=== PATIENT | female | born 1975 | race American Indian/Alaskan Native ===

== ENCOUNTER 2017-12-25 09:34 | Emergency (ER) | payer SELFPAY ==
[2017-12-25] MEDS ORDERED: REGLAN IV ONE (11:19)
[2017-12-25] MEDS ORDERED: BENADRYL IV ONE (11:20)
[2017-12-25] MEDS ORDERED: TYLENOL PO ONE (11:20)
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
[2017-12-25 12:21] VITALS: BP 113/73
== END 2017-12-25 12:27 | disposition home or self-care (01) ==
LOC: ED 09:34
DX: G89.29 Other chronic pain (principal); R51 Headache; F17.200 Nicotine dependence, unspecified, uncomplicated; Z91.041 Radiographic dye allergy status; Z88.6 Allergy status to analgesic agent
CPT/HCPCS: 96374; 96375; 99282; J1200; J2765

== ENCOUNTER 2017-12-25 19:38 | Emergency (ER) | payer SELFPAY ==
[2017-12-25 21:50] LABS: HCG Qualitative,Urine Negative (Negative)
[2017-12-25 21:52] LABS: Bilirubin,Urine NEG (Negative); Blood,Urine NEG (Negative); Color,Urine Yellow (Yellow); Mucus,Urine FEW /HPF; Protein,Urine <15 mg/dL mg/dL (Negative); Urobilinogen,Urine < 2.0 mg/dL (<2.0)
[2017-12-25 23:49] VITALS: BP 132/85
[2017-12-26] MEDS ORDERED: BENADRYL PO ONE (00:19)
[2017-12-26] MEDS ORDERED: REGLAN PO ONE (00:20)
[2017-12-26] MEDS ORDERED: DECADRON PO ONE (00:20)
[2017-12-26] MEDS ORDERED: NACL 0.9% 1000 ML 1,000 ML IV ONE (00:20)
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
== END 2017-12-26 02:23 | disposition home or self-care (01) ==
LOC: ED 19:38
DX: G89.29 Other chronic pain (principal); R51 Headache; F32.9 Major depressive disorder, single episode, unspecified; F41.9 Anxiety disorder, unspecified; F20.9 Schizophrenia, unspecified; F17.200 Nicotine dependence, unspecified, uncomplicated; J45.909 Unspecified asthma, uncomplicated; Z88.1 Allergy status to other antibiotic agents; Z88.6 Allergy status to analgesic agent
CPT/HCPCS: 81001; 81025; 93005; 93010; 99283; J7030; J8540

== ENCOUNTER 2018-08-30 14:22 | Emergency (ER) | payer MEDICARE ==
[2018-08-30 15:43] LABS: Basophils % (Auto) 0.6 % (0.0-1.8); Eosinophils # (Auto) 0.1 K/mm3 (0.0-0.4); Hematocrit 33.5 % (30.3-42.9); Lymphocytes # (Auto) 1.8 K/mm3 (1.2-5.4); Lymphocytes % (Auto) 24.1 % (13.4-35.0); Mean Corpuscular HGB Conc 33 % (30-34); Mean Corpuscular Volume 78 fl (79-97); Monocytes # (Auto) 0.7 K/mm3 (0.0-0.8); Monocytes % (Auto) 9.5 % (0.0-7.3); Platelet Count 422 K/mm3 (140-440); Red Blood Count 4.28 M/mm3 (3.65-5.03)
[2018-08-30 15:46] LABS: Red Cell Distribution Width 21.3 % (13.2-15.2)
[2018-08-30 15:57] LABS: INR 0.85 (0.87-1.13)
[2018-08-30 15:58] LABS: Partial Thromboplastin Time 29.7 Sec. (24.2-36.6)
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
[2018-08-30 16:04] LABS: Alanine Aminotransferase 19 units/L (7-56); Albumin 4.2 g/dL (3.9-5); BUN/Creatinine Ratio 11; Blood Urea Nitrogen 10 mg/dL (7-17); Calcium 9.4 mg/dL (8.4-10.2); Hemolysis Index 3
[2018-08-30 17:33] VITALS: BP 122/78
[2018-08-30] MEDS ORDERED: BABY ASPIRIN PO ONE (18:19)
--- NOTE | 2018-08-30 19:31 | XRay Report ---
PROCEDURE: XR CHEST ROUTINE 2V HISTORY: Chest Pain FINDINGS: Frontal and lateral views of the chest were acquired. There is cardiomegaly. There is some bibasilar linear consolidation which is likely atelectasis. No other infiltrate is seen. The pulmonar y vasculature is within normal limits. There is no pneumothorax. IMPRESSION: Cardiomegaly. Otherwise, no active disease in the chest This document is electronically signed by Alejandro Harkins MD., August 30 2018 07:29:00 PM ET
== END 2018-08-30 19:44 | disposition home or self-care (01) ==
LOC: ED 14:22
DX: R07.9 Chest pain, unspecified (principal); I25.2 Old myocardial infarction; J45.909 Unspecified asthma, uncomplicated; Z88.6 Allergy status to analgesic agent; Z88.1 Allergy status to other antibiotic agents
CPT/HCPCS: 36415; 71046; 80053; 83690; 83880; 84484; 85025; 85610; 85730; 93005; 93010; 99284

== ENCOUNTER 2019-07-13 05:58 | Emergency (ER) | payer MEDICARE ==
[2019-07-13 06:50] LABS: Bilirubin,Urine NEG (Negative); Blood,Urine NEG (Negative); Color,Urine Yellow (Yellow); Mucus,Urine FEW /HPF; Protein,Urine <15 mg/dL mg/dL (Negative); Urobilinogen,Urine < 2.0 mg/dL (<2.0)
[2019-07-13 08:35] LABS: HCG Qualitative,Urine Negative (Negative)
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
[2019-07-13 09:48] VITALS: BP 120/80
== END 2019-07-13 09:47 | disposition home or self-care (01) ==
LOC: ED 05:58
DX: N76.0 Acute vaginitis (principal); I25.2 Old myocardial infarction; F32.9 Major depressive disorder, single episode, unspecified; F41.9 Anxiety disorder, unspecified; F25.0 Schizoaffective disorder, bipolar type; J45.909 Unspecified asthma, uncomplicated; F17.200 Nicotine dependence, unspecified, uncomplicated; Z79.899 Other long term (current) drug therapy; Z88.8 Allergy status to other drugs, medicaments and biological substances
CPT/HCPCS: 81001; 81025; 87086; 87591

== ENCOUNTER 2019-09-08 09:09 | Emergency (ER) | payer MEDICARE ==
[2019-09-08 09:27] VITALS: BP 116/72
[2019-09-08 09:47] LABS: Basophils # (Auto) 0.1 K/mm3 (0.0-0.1); Basophils % (Auto) 1.3 % (0.0-1.8); Eosinophils # (Auto) 0.1 K/mm3 (0.0-0.4); Eosinophils % (Auto) 1.4 % (0.0-4.3); Hematocrit 31.8 % (30.3-42.9); Hemoglobin 10.1 gm/dl (10.1-14.3); Lymphocytes # (Auto) 1.7 K/mm3 (1.2-5.4); Lymphocytes % (Auto) 22.1 % (13.4-35.0); Mean Corpuscular HGB Conc 32 % (30-34); Mean Corpuscular Volume 72 fl (79-97); Monocytes # (Auto) 0.7 K/mm3 (0.0-0.8); Monocytes % (Auto) 8.6 % (0.0-7.3); Platelet Count 437 K/mm3 (140-440); Red Blood Count 4.43 M/mm3 (3.65-5.03)
[2019-09-08 10:17] LABS: BUN/Creatinine Ratio 14; Blood Urea Nitrogen 13 mg/dL (7-17); Calcium 9.4 mg/dL (8.4-10.2); Hemolysis Index 0
[2019-09-08 11:11] LABS: Bacteria,Urine 1+ /HPF (Negative); Bilirubin,Urine NEG (Negative); Blood,Urine NEG (Negative); Color,Urine Yellow (Yellow); Protein,Urine <15 mg/dL mg/dL (Negative); Urobilinogen,Urine < 2.0 mg/dL (<2.0)
[2019-09-08 11:17] LABS: Amphetamine Screen,Urine PRESUMPTIVE NEGATIVE; Benzodiazepines Screen,Urine PRESUMPTIVE NEGATIVE; Cannabinoid Screen,Urine PRESUMPTIVE NEGATIVE; Cocaine Screen,Urine PRESUMPTIVE NEGATIVE; Methadone Screen,Urine PRESUMPTIVE NEGATIVE; Opiate Screen,Urine PRESUMPTIVE NEGATIVE
== END 2019-09-08 16:54 | disposition left against medical advice (07) ==
LOC: ED 09:09
DX: J11.1 Influenza due to unidentified influenza virus with other respiratory manifestations (principal); Z53.21 Procedure and treatment not carried out due to patient leaving prior to being seen by health care provider
CPT/HCPCS: 36415; 80048; 80307; 80320; 81001; 85025; G0480

== ENCOUNTER 2019-09-11 09:43 | Emergency (ER) | payer MEDICARE ==
[2019-09-11 09:57] VITALS: BP 102/60
[2019-09-11] MEDS ORDERED: predniSONE 20 MG TAB PO ONE (12:17)
[2019-09-11] MEDS ORDERED: ALBUTEROL 2.5 MG/3 ML NEBU IH ONE (12:17)
[2019-09-11] MEDS ORDERED: IPRATROPIUM 0.02% NEBU 2.5 ML IH ONE (12:17)
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
== END 2019-09-11 13:31 | disposition left against medical advice (07) ==
LOC: ED 09:43
DX: J45.909 Unspecified asthma, uncomplicated (principal); I25.2 Old myocardial infarction; F41.9 Anxiety disorder, unspecified; F31.9 Bipolar disorder, unspecified; F17.200 Nicotine dependence, unspecified, uncomplicated; Z79.899 Other long term (current) drug therapy; Z88.6 Allergy status to analgesic agent; Z88.8 Allergy status to other drugs, medicaments and biological substances
CPT/HCPCS: 94640; 99282; J7512